=== PATIENT | male | born 1955 | race Caucasian/White ===

== ENCOUNTER 2020-04-25 18:31 | Emergency (ER) | payer OTHER, BC ==
[~2020-04-25] VITALS: Ht 185.4 cm; Wt 94.3 kg
[2020-04-25 19:48] VITALS: BP_SYST 155
[2020-04-25] MEDS ORDERED: BENA20TA9 PO (19:48)
[2020-04-25] MEDS ORDERED: METO25TA6 PO (19:48)
[2020-04-25] MEDS ORDERED: HYDR12.55 PO (19:48)
--- NOTE | 2020-04-25 19:55 | NUR ---
PATIENT RETURNED TO ER WAITING ROOM PENDING BED ASSIGNMENT
--- NOTE | 2020-04-25 22:26 | NUR ---
ER at bedside examining patient.
--- NOTE | 2020-04-25 22:30 | NUR ---
Pt sitting up in gurney, denies nausea or vomiting. No distress noted.
[2020-04-25 23:00] LABS: CALCIUM 9.1 mg/dL (8.4-11.0); CREATININE 1.48 mg/dL (0.55-1.30); POTASSIUM 3.3 mmol/L (3.5-5.1)
[2020-04-25 23:05] LABS: ALBUMIN 4.4 g/dL (3.4-4.8); TOTAL BILIRUBIN 2.3 mg/dL (0.0-1.0)
[2020-04-25 23:38] LABS: BILIRUBIN,URINE 1+ (NEGATIVE); BLOOD, URINE NEGATIVE (NEGATIVE); CLARITY/URINE CLEAR (CLEAR); COLOR,URINE YELLOW (YELLOW); GLUCOSE,URINE NEGATIVE (NEGATIVE); KETONES,URINE TRACE (NEGATIVE); LEUKOCYTE ESTERASE ,URINE NEGATIVE (NEGATIVE); NITRITE, URINE NEGATIVE (NEGATIVE); PROTEIN URINE TRACE (NEGATIVE)
[2020-04-25 23:43] LABS: BACTERIA,URINE RARE /HPF (None Seen); RBC,URINE 0-3 /HPF (0-3); WBC,URINE 0-3 /HPF (0-3)
[2020-04-26 00:13] LABS: BASOPHILS % (AUTO) 0.4 % (0.0-2.0); EOSINOPHILS % (AUTO) 0.7 % (0.0-4.0); HEMATOCRIT 40.7 % (36-54); HEMOGLOBIN 13.8 g/dL (14.0-18.0); LYMPHOCYTES # (AUTO) 1.6 K/uL (1.0-5.5); LYMPHOCYTES % (AUTO) 25.2 % (20.5-51.5); MEAN CORPUSCULAR HEMOGLOBIN 34 pg (27-31); MEAN CORPUSCULAR HGB CONC 34 % (32-36); MEAN CORPUSCULAR VOLUME 101 fL (79.0-98.0); MONOCYTES # (AUTO) 0.6 K/uL (0.0-1.0); MONOCYTES % (AUTO) 8.7 % (1.7-9.3); NEUTROPHILS # (AUTO) 4.1 K/uL (1.8-7.7); PLATELET COUNT (AUTO) 178 K/uL (130-430); RED BLOOD CELL COUNT(AUTO) 4.03 MIL/uL (4.2-6.2); RED CELL DISTRIBUTION WIDTH 13.9 % (9.0-15.0); WHITE BLOOD COUNT (AUTO) 6.4 K/uL (4.8-10.8)
[2020-04-26] MEDS ORDERED: FOLIC ACID 1 MG, THIAMINE HCL 100 MG, MAGNESIUM SULFATE 1 GM, MVI 10 ML in NACL 0.9% 1,... IV ONE (00:45)
[2020-04-26] MEDS ORDERED: POTASSIUM CHLORIDE 20 MEQ TAB.PRT.SR PO ONE (00:45)
[2020-04-26] MEDS ORDERED: MVI 10 ML VIAL IV ONE (01:16)
[2020-04-26] MEDS ORDERED: MAGNESIUM SULFATE 1 GM/2 ML VIAL ONE (01:16)
[2020-04-26] MEDS ORDERED: THIAMINE HCL 100 MG/ML VIAL ONE (01:16)
[2020-04-26] MEDS ORDERED: FOLIC ACID 5 MG/ML VIAL IV ONE (01:16)
[2020-04-26 02:08] VITALS: BP_SYST 138
--- NOTE | 2020-04-26 02:11 | NUR ---
Patient given written and verbal discharge instructions and verbalizes understanding. ER MD Dr. Montalvo discussed with patient the results and treatment provided. Patient in stable condition. ID arm band removed. IV catheter removed intact and dressing applied, no active bleeding. Patient educated on pain management and to follow up with PMD. Pain Scale 0/10. Opportunity for questions provided and answered. Medication side effect fact sheet provided.
== END 2020-04-26 02:08 | disposition home or self-care (01) ==
LOC: SED 18:31
DX: R20.2 Paresthesia of skin (principal); E87.6 Hypokalemia; N28.9 Disorder of kidney and ureter, unspecified; R74.0 Nonspecific elevation of levels of transaminase and lactic acid dehydrogenase [LDH]; Z79.899 Other long term (current) drug therapy
CPT/HCPCS: 36415; 80053; 81000; 83690; 83735; 85025; 93005; 96365; 99284; J3411; J3475; J3490; J7030